=== PATIENT | male | born 2000 | race Two or more races ===

== ENCOUNTER 2024-01-21 08:56 | Emergency (ER) | payer MEDICAID, SELFPAY ==
[2024-01-21 09:00] VITALS: BP 148/83; PULSE 66; RESP 18; TEMP 36.5; O2SAT 98; BMI 27.5
[2024-01-21 13:08] VITALS: BP 134/88; PULSE 64; RESP 20; TEMP 36.9; O2SAT 97
--- NOTE | 2024-01-21 13:25 | ED_ITS ---
HPI - Skin/Abscess/Foreign Bdy General Chief complaint: Skin/Abscess/Foreign Body Stated complaint: rash Time Seen by Provider: 01/21/24 13:10 Source: patient Mode of arrival: ambulatory Limitations: no limitations History of Present Illness HPI narrative: 23 yo male with no sig PMH here with c/o intermittent itchy red rash in groin area no fevers no hx of diabetes tries vaseline at times which soothes it. complaint: rash Onset (ago): month(s) (few months) Location: genitals (groin) Severity: mild Quality: pruritic Relieving factors: none Exacerbating factors: other (heat and moisture) Context: none Associated symptoms: denies other symptoms Treatments prior to arrival: other (has tried vaseline) Related Data Previous Rx's ?Medication ?Instructions ?Recorded clotrimazole 1 % topical cream 1 appl topical BID 2 weeks #15 01/21/24 (Jock Itch (clotrimazole)) grams Allergies Allergy/AdvReac Type Severity Reaction Status Date / Time No Known Allergies Allergy Verified 01/21/24 09:02 Review of Systems Review of Systems: Constitutional : No Fever, No Chills ENT/Mouth : No sore throat, No Rhinorrhea Eyes: No Eye Pain, No Swelling, No Redness Cardiovascular : No Chest Pain, No SOB Respiratory : No Cough, No Sputum Gastrointestinal : No Nausea, No Vomiting, No Diarrhea, No abdominal Pain Genitourinary : No Dysuria, No Hematuria Musculoskeletal : No joint pain, No Myalgias, No Joint Swelling Skin : No Skin Lesions, positive skin rash Neuro : No Weakness, No Numbness, No Headache All other systems reviewed and are negative [facility] Past Medical History Attestation statement: The following information was validated with the patient. Source: old records reviewed Medical History No pertinent past medical history Social History Social History (Updated 01/21/24 @ 13:40 by Shannan Dee DO) Patient Tobacco Use Status: Never used Tobacco Physical Exam Vital Signs: Vital Signs: Last Vital Signs Temp 98.5 F 01/21/24 13:08 Pulse 64 01/21/24 13:08 Resp 20 01/21/24 13:08 BP 134/88 01/21/24 13:08 Pulse Ox 97 01/21/24 13:08 O2 Del Method Room Air 01/21/24 13:08 BMI result Body Mass Index 27.5 Appearance: Alert. Oriented X3. No acute distress. Eyes: Pupils equal, round and reactive to light. ENT: Pharynx normal. Neck: Normal inspection. Neck supple. CVS: Normal heart rate and rhythm. Pulses normal. Respiratory: No respiratory distress. Breath sounds normal. Abdomen: Soft and nontender. : very faint erythema in folds between scrotal sac and groin no abscess or cellulitis noted no other lesions noted Skin: Skin warm and dry. Normal skin color. Extremities: No lower extremity edema. Neuro: Oriented X 3. No motor deficit. No sensory deficit. Medical Decision Making Medical Decision Making [facility] Narrative: 23 yo male healthy here with intermittent itchy rash in groins worse with exercise and sweat at this time no signs of infection no lesions to suggest STI will put on jock itch PRN medications Differential Diagnosis Differential Diagnoses: The differential diagnosis associated with the presentation includes jock itch, dermatitis Lab Data [facility] Lab Attestation statement: I reviewed the patient's lab results. Prescription Management I considered prescription management with: Other Discharge Plan Discharge Clinical Impression: Jock itch Patient Disposition: Home, Self-Care Instructions: Jock Itch (ED) Additional Instructions: return for worsening symptoms such as pain, swelling, fever or any other concerns your blood sugar is normal Prescriptions: New clotrimazole [Jock Itch (clotrimazole)] 1 % cream 1 appl topical BID 14 Days Qty: 15 1RF Stand Alone Forms: Work/School Release Print Language: Cam[place]onian
[2024-01-21 13:29] LABS: Glucose, Whole Blood 100 mg/dL (60-115)
[2024-01-21 13:39] VITALS: BP 00/00; PULSE 0; RESP 0; TEMP -17.7; TEMP 0
== END 2024-01-21 13:40 | disposition home or self-care (01) ==
PROVIDERS: Emergency Provider Emergency Medicine
DX: B35.6 Tinea cruris (principal)
CPT/HCPCS: 82947; 99283

== ENCOUNTER 2024-07-18 11:47 | Emergency (ER) | payer BC, SELFPAY ==
[2024-07-18 11:53] VITALS: BP 144/92; PULSE 72; RESP 18; TEMP 36.1; O2SAT 97; BMI 36.2
--- NOTE | 2024-07-18 11:58 | ED.GENADULT ---
HPI - General Adult General Chief complaint: Ear Problems Stated complaint: r ear discomfort Time Seen by Provider: 07/18/24 11:57 Source: patient Mode of arrival: ambulatory Limitations: no limitations History of Present Illness ED Provider: Colby Bishop HPI narrative: 24-year-old male presents to ED for right ear fullness and slight pain for a couple of days. Patient states he has cerumen impacted in his right ear. Patient denies any recent swimming, ear discharge, fever, chills, blood from the ears. Related Data Previous Rx's ?Medication ?Instructions ?Recorded clotrimazole 1 % topical cream 1 appl topical BID 2 weeks #15 01/21/24 (Jock Itch (clotrimazole)) grams amoxicillin 875 mg-potassium 1 tab PO Q12H 10 days #20 tabs 07/18/24 clavulanate 125 mg tablet carbamide peroxide 6.5 % ear drops 5 drp otic (ear) left Q12H 4 days 07/18/24 (Debrox) #15 mL Allergies Allergy/AdvReac Type Severity Reaction Status Date / Time No Known Allergies Allergy Verified 07/18/24 11:54 Review of Systems Review of Systems: Right ear discomfot Yes all other systems are reviewed and are negative [facility] Past Medical History Medical History No pertinent past medical history Social History Social History (Updated 01/21/24 @ 13:40 by Shannan Dee DO) Patient Tobacco Use Status: Never used Tobacco Advance Directives: No Advance Directives Information Provided: No Physical Exam ED Vital Signs: Vital Signs - 24 hr 07/18/24 11:53 07/18/24 12:24 Temperature 97.0 F 97.0 F Pulse Rate 72 72 Respiratory Rate 18 18 Blood Pressure 144/92 H 144/92 H Pulse Oximetry 97 97 Oxygen Delivery Method Room Air Room Air BMI result Body Mass Index 36.2 Const General: cooperative, healthy appearing, comfortable, no acute distress, well developed, alert, awake and Physically active Orientation/consciousness: patient oriented x3 HENMT Head: Yes normal to inspection, Yes No palpable skull fracture present, Yes normocephalic and Yes atraumatic Ears: hearing grossly normal bilaterally, external ears normal, TM normal on the left, mastoids normal, no periauricular adenopathy and Abnormal EAC present excessive cerumen on the right and erythema on the right Throat: Yes posterior oropharynx normal, Yes tonsils normal and Yes uvula midline Eyes General: appearance normal, both eyes and all related structures Neck Neck: Yes normal visual inspection, Yes full ROM, Yes no lymphadenopathy, Yes no meningeal signs, Yes trachea midline, Yes supple, No anterior neck swelling and No tender Chest Chest palpation & inspection: normal inspection of the chest and normal palpation of entire chest wall Resp Effort & Inspection: normal respiratory effort and able to speak in complete sentences Auscultation: clear to auscultation bilaterally Cardio Jugular venous distension: no JVD Heart sounds: S1 normal heart sound present and S2 normal heart sound present GI Inspection: Yes normal to inspection Palpation (GI): Soft to palpation, not firm, nontender, no guarding and not rigid General: No CVA tenderness and Yes no CVA tenderness Back/Spine/Pelvis Back: no CVA tenderness, No CVA tenderness and No back tenderness Skin General skin exam: no rashes or lesions noted and turgor normal Neuro General: patient oriented x3, gait normal, tone normal, moves all extremities, Normal light touch and pain sensation, no meningeal signs, no focal motor deficits, CN's II-XI intact bilaterally and normal sensation to monofilament Extrem General: Yes normal to inspection, Yes full ROM and Yes capillary refill normal Psych Appearance: grossly normal, well kempt and not disheveled Medical Decision Making Medical Decision Making MDM Narrative: 24 yold male ear cerumen presents to ED for right ear fullness and slight discomfort. Patient denies any recent head trauma. Physical exam positive for excessive cerumen right ear canal but negative for cerumen impaction. Ear Canal Erythamatous. Rest of HEENT exam is normal. Patient denies any chest pain shortness of breath. Patient denies any urinary symptoms. Negative for any stroke-like symptoms. Not suspecting stroke, osteomyelitis, mastoiditis, parotitis, triceps arthritis, glaucoma, foreign body, brain bleed, skull fracture, or facial structure. Differential Diagnosis Differential Diagnoses: The differential diagnosis associated with the presentation includes (otitis media, otitis externa, cerumen impaction) Admission/Observation Consideration of admission/observation: Escalation of care including admission/observation considered Independent Historian Clinical information obtained from an independent historian. History obtained from or confirmed by: Other (patient) External Record Review External record reviewed: Other (prior visit) Prescription Management I considered prescription management with: Antibiotic and Other (debrox) Discharge Plan Discharge Clinical Impression: Otitis media, Excessive cerumen in right ear canal Patient Disposition: Home, Self-Care Instructions: Ear Infection (ED) Additional Instructions: Return to the ED immediately for any severe ear pain, ear discharge, headache, nausea, vomiting, dizziness, fever, chill, swelling in front/behind ear, redness, any other concerning symptoms. Recommend follow up with primary care provider. He will be discharged with Debrox and antibiotics. You do have cerumen in the right ear but negative for any cerumen impaction. Ear canal and TM had redness. Prescriptions: New amoxicillin-pot clavulanate 875-125 mg tablet 1 tab PO Q12H 10 Days Qty: 20 0RF Debrox 6.5 % drops 5 drp otic (ear) left Q12H 4 Days Qty: 15 0RF No Action clotrimazole [Jock Itch (clotrimazole)] 1 % cream 1 appl topical BID 14 Days Qty: 15 1RF Interventions: ED Discharge Assessment Last Done: 07/18/24 12:24 Discharge Date/Time: 07/18/24 12:25 Print Language: Citizen [place]
[2024-07-18 12:24] VITALS: BP 144/92; PULSE 72; RESP 18; TEMP 36.1; O2SAT 97
== END 2024-07-18 12:25 | disposition home or self-care (01) ==
PROVIDERS: Emergency Provider Emergency Medicine
DX: H92.01 Otalgia, right ear (principal); H66.91 Otitis media, unspecified, right ear; H61.21 Impacted cerumen, right ear
CPT/HCPCS: 99282